=== PATIENT | male | born 1945 | race Two or more races ===

== ENCOUNTER 2019-09-06 07:17 | Day surgery (SDC) | payer OTHER | END 2019-09-06 14:15 | disposition home or self-care (01) | LOC: AMB-ENDOS 07:17 | DX: D12.5 Benign neoplasm of sigmoid colon (principal); K64.2 Third degree hemorrhoids ==

== ENCOUNTER 2020-10-30 09:46 | Day surgery (SDC) | payer OTHER | END 2020-10-30 14:45 | disposition home or self-care (01) | LOC: AMB-ENDOS 09:46 | PROVIDERS: ATTEND Colon & Rectal Surgery | DX: K62.89 Other specified diseases of anus and rectum (principal); K64.1 Second degree hemorrhoids; Z20.822 Contact with and (suspected) exposure to COVID-19 ==